=== PATIENT | female | born 1975 | race Caucasian/White ===

== ENCOUNTER 2016-12-23 15:25 | Emergency (ER) | payer SELFPAY ==
[~2016-12-23] VITALS: Ht 172.7 cm; Wt 104.3 kg
[~2016-12-23 15:25] MED LIST: CEPH-264 PO; HYDR-971 PO; ONDA4TAB10 SL
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
[2016-12-23 16:02] LABS: BASO # 0.1 x10^3/uL (0.0-0.2); BASO % 1 % (0-3); EOS % 1 % (0-3); HEMATOCRIT 41.2 % (36.0-47.0); HEMOGLOBIN 14.3 g/dL (12.0-15.5); LYMPH # 3.4 x10^3/uL (1.0-4.8); LYMPH % 34 % (24-48); MEAN CORPUSCULAR HEMOGLOBIN 30 pg (25-35); MEAN CORPUSCULAR HGB CONC 35 g/dL (31-37); MEAN CORPUSCULAR VOLUME 87 fL (79-100); MONO % 6 % (0-9); NEUT % 59 % (31-73); PLATELET COUNT 318 x10^3/uL (140-400); RED BLOOD COUNT 4.71 x10^6/uL (3.50-5.40); RED CELL DISTRIBUTION WIDTH 13.7 % (11.5-14.5)
[2016-12-23 16:14] LABS: BILIRUBIN,URINE NEGATIVE (NEG); GLUCOSE,URINE NEGATIVE (NEG); NITRITE,URINE NEGATIVE (NEG); PROTEIN,URINE NEGATIVE (NEG-TRACE); UROBILINOGEN,URINE 0.2 mg/dL (0.2 mg/dL)
[2016-12-23] MEDS ORDERED: ONDANSETRON PF 4 MG/2 ML VIAL. IV ONE (16:15)
[2016-12-23] MEDS ORDERED: IOHEXOL 300 MG/ML 75 ML VIAL IV ONE (16:15)
[2016-12-23] MEDS ORDERED: MORPHINE SULFATE 10 MG/ML VIAL. IV ONE (16:15)
[2016-12-23] MEDS ORDERED: IV NORMAL SALINE 1000ML BAG 1,000 ML IV ONE (16:15)
[2016-12-23 16:28] LABS: CALCIUM 9.5 mg/dL (8.5-10.1); CREATININE 0.8 mg/dL (0.6-1.0); GFR 79.4; POTASSIUM 3.6 mmol/L (3.5-5.1)
[2016-12-23] MEDS ORDERED: CONTRAST GIVEN MC PRN (16:30)
[2016-12-23 16:41] LABS: ALBUMIN 3.8 g/dL (3.4-5.0); ALBUMIN/GLOBULIN RATIO 0.8 (1.0-1.7); MAGNESIUM 2.1 mg/dL (1.8-2.4); TOTAL BILIRUBIN 0.2 mg/dL (0.2-1.0); TOTAL PROTEIN 8.8 g/dL (6.4-8.2)
[2016-12-23 16:41] LABS: BARBITURATES NEG (NEG); BENZODIAZEPINES NEG (NEG); CANNABINOIDS POS (NEG); COCAINE NEG (NEG); METHADONE NEG (NEG); OPIATES POS (NEG); PHENCYCLIDINE NEG (NEG)
[2016-12-23 16:49] LABS: RBC,URINE TNTC /HPF (0-2)
[2016-12-23 16:51] LABS: BACTERIA,URINE FEW /HPF (0-FEW); SQUAMOUS EPITHELIAL CELL,UR FEW /LPF
[2016-12-23] MEDS ORDERED: KETOROLAC TROMETHAMINE 30 MG/ML INJ. IV ONE (17:15)
--- NOTE | 2016-12-23 18:12 | RAD ---
Exam performed: CT scan of the abdomen and pelvis without contrast. Clinical Indication: Rightflank pain. Date of Service: 12/23/2016 CT abdomen and pelvis without contrast from 07/01/2016 was also reviewed. Technique: Contiguous helical acquisitions are obtained through the abdomen and pelvis without IV contrast. Sagittal and coronal reformatted images are obtained and reviewed. CT abdomen and pelvis findings: The lung bases are essentially clear. Visualized heart is normal. Lack of IV contrast limits evaluation of abdominal viscera, however the liver, gallbladder, spleen and pancreas are normal. Both adrenal glands and bilateral kidneys are normal in size without hydronephrosis or nephrolithiasis. Stable Contour abnormality in the superior pole of the right kidney is noted. Aorta is normal in caliber without aneurysm. The small and large bowel loops are nondilated and unremarkable. Scattered stool throughout the colon. The visualized portion of the appendix is unremarkable Distal ureters are nondilated. Urinary bladder is decompressed and thick walled. [The uterus is anteverted. No adnexal masses are seen. No free fluid. There are post operative changes about the left acetabulum.] Impression: No acute intra-abdominal or pelvic process detected. No evidence of urolithiasis. Visualized presumed appendix appears grossly normal. PQRS Compliance Statement: One or more of the following individualized dose reduction techniques were utilized for this examination: 1. Automated exposure control 2. Adjustment of the mA and/or kV according to patient size 3. Use of iterative reconstruction technique Electronically signed by: Leida Fuentes MD (12/23/2016 6:09 PM)
[2016-12-23 18:14] VITALS: BP 153/79
[2016-12-23] MEDS ORDERED: ONDA4TAB10 PO (18:19)
[2016-12-23] MEDS ORDERED: HYDR-971 PO (18:19)
== END 2016-12-23 18:30 | disposition home or self-care (01) ==
LOC: ER 15:25
DX: R10.30 Lower abdominal pain, unspecified (principal); R11.2 Nausea with vomiting, unspecified; N93.9 Abnormal uterine and vaginal bleeding, unspecified; M19.90 Unspecified osteoarthritis, unspecified site; Z98.51 Tubal ligation status
CPT/HCPCS: 36415; 74176; 80053; 80305; 80320; 81001; 81025; 82550; 83690; 83735; 84702; 85027; 87086; 96361; 96374; 96375; 99285; J1885; J2270; J2405; J7030; G0480; G0481